=== PATIENT | female | born 1980 | race Two or more races ===

== ENCOUNTER 2020-11-11 17:56 | Emergency (ER) | payer MEDICAID ==
[~2020-11-11] VITALS: Ht 154.9 cm; Wt 81.6 kg
[2020-11-11] MEDS ORDERED: Morphine Sulfate 4mg/ml Inj (IV USE ONLY) IVP ONE (18:30)
--- NOTE | 2020-11-11 18:30 | NUR ---
ED Nurse Note:pt. came from home with c/o abdominal pain, blood and urine sent to labs
[2020-11-11 18:31] VITALS: BP 139/76
--- NOTE | 2020-11-11 18:35 | Emergency Room Report ---
History of Present Illness General Chief Complaint: Abdominal Pain Source: Patient (Ruby Randhawa) Present Illness HPI 40 YO female presents to the ED c/o 10 out of 10 in severity abdominal pain in the right upper quadrant and right lower quadrant progressive x4 days. Patient reports that pain is sharp in nature and it comes and goes. She denies radiation of her pain. She denies nausea, vomiting, fevers, chills, constipation or diarrhea. Patient does report some abdominal tenderness. She reports history of diabetes and reports that she takes Metformin daily. Patient reports that her blood glucose has been regularly under control. She denies any other significant past medical history. Patient does report that she is concerned she may have cancer. Patient denies familial history of cancers. Patient denies night sweats or significant changes in weight. She reports Gallbladder removal surgery. She denies ETOH, Tobacco or illicit drug use. She denies CP, Palpitations, Dizziness, rashes, bruising, syncope. Pt. reports some midline low back pain that began at the same time. She denies urinary incontinence or retention. Patient denies saddle anesthesia, paresthesias, muscle weakness or inability to ambulate. Patient denies urinary frequency, urgency, hematuria or dysuria. No other aggravating or relieving factors. 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 COVID-19 Screening: Negative COVID-19 COVID-19 Testing Source: clinic (Ruby Randhawa) Patient History Past Medical History: see triage record, DM Past Surgical History: jabier Pertinent Family History: none Social History: Denies: smoking, alcohol use, drug use Last Menstrual Period: last week Now: No Reviewed Nursing Documentation: PMH: Agreed; PSxH: Agreed (Ruby Randhawa) Nursing Documentation-PMH Hx Diabetes: Yes (Ruby Randhawa) Review of Systems All Other Systems: negative except mentioned in HPI (Ruby Randhawa) Physical Exam Vital Signs Date Time Temp Pulse Resp B/P (MAP) Pulse Ox O2 Delivery O2 Flow Rate FiO2 11/11/20 18:03 99.0 110 19 139/76 (97) 98 Room Air Sp02 EP Interpretation: reviewed, normal General Appearance: no apparent distress, alert, GCS 15, non-toxic Head: normocephalic, atraumatic Eyes: bilateral eye normal inspection, bilateral eye PERRL ENT: hearing grossly normal, normal voice Neck: full range of motion Respiratory: lungs clear, normal breath sounds, speaking full sentences Cardiovascular #1: regular rate, rhythm, tachycardia Gastrointestinal: normal bowel sounds, soft, no peritonitis, non-distended, no guarding, tenderness - RUQ, and RLQ. Pt. seems to have some diffuse tenderness but majority of pain is on the right side. Rectal: deferred Genitourinary: normal inspection, no CVA tenderness Musculoskeletal: back normal, normal range of motion, gait/station normal, tender - Right paraspinal ttp, no midline ttp. Neurologic: alert, motor strength/tone normal, oriented x3, sensory intact, responsive, speech normal Psychiatric: judgement/insight normal Skin: no rash, normal color (Ruby Randhawa) Medical Decision Making PA Attestation Dr. Brandon Is my supervising Physician whom patient management has been discussed with. (Ruby Randhawa) Diagnostic Impression: Primary Impression: Abdominal pain Qualified Codes: R10.11 - Right upper quadrant pain Additional Impressions: Fatty liver Pre-diabetes Constipation Qualified Codes: K59.00 - Constipation, unspecified ER Course 40 YO female presents to the ED c/o 10 out of 10 in severity abdominal pain in the right upper quadrant and right lower quadrant progressive x4 days. Patient reports that pain is sharp in nature and it comes and goes. She denies radiation of her pain. She denies nausea, vomiting, fevers, chills, constipation or diarrhea. Patient does report some abdominal tenderness. She reports history of diabetes and reports that she takes Metformin daily. Patient reports that her blood glucose has been regularly under control. She denies any other significant past medical history. Patient does report that she is concerned she may have cancer. Patient denies familial history of cancers. Patient denies night sweats or significant changes in weight. She reports Gallbladder removal surgery. She denies ETOH, Tobacco or illicit drug use. She denies CP, Palpitations, Dizziness, rashes, bruising, syncope. Pt. reports some midline low back pain that began at the same time. She denies urinary incontinence or retention. Patient denies saddle anesthesia, paresthesias, muscle weakness or inability to ambulate. Patient denies urinary frequency, urgency, hematuria or dysuria. No other aggravating or relieving factors. Ddx considered but are not limited to Diverticulitis, acute appy, diarrhea,UC, PUD, GE, pancreatitis, gallstone, ovarian torsion, ectopic , PID tubo-ovarian abscess. Vital signs: are WNL, pt. is afebrile H&PE are most consistent with [ ] ORDERS: -CBC, CMP, LIPASE: -UA -URINE HCG: -Abdominal US: ED INTERVENTIONS: -PO zofran 4mg. / Zantac, Fluids - Morphine 4mg IV DISCHARGE: At this time pt. is stable for d/c to home. Will provide printed patient care instructions, and any necessary prescriptions. Care plan and follow up instructions have been discussed with the patient prior to discharge. Labs Test 11/11/20 18:20 White Blood Count 8.3 K/UL (4.8-10.8) Red Blood Count 4.57 M/UL (4.20-5.40) Hemoglobin 12.6 G/DL (12.0-16.0) Hematocrit 39.4 % (37.0-47.0) Mean Corpuscular Volume 86 FL (80-99) Mean Corpuscular Hemoglobin 27.6 PG (27.0-31.0) Mean Corpuscular Hemoglobin Concent 32.1 G/DL (32.0-36.0) Red Cell Distribution Width 13.9 % (11.6-14.8) Platelet Count 234 K/UL (150-450) Mean Platelet Volume 8.6 FL (6.5-10.1) Neutrophils (%) (Auto) 60.8 % (45.0-75.0) Lymphocytes (%) (Auto) 24.1 % (20.0-45.0) Monocytes (%) (Auto) 9.4 % (1.0-10.0) Eosinophils (%) (Auto) 4.8 % (0.0-3.0) Basophils (%) (Auto) 0.9 % (0.0-2.0) Urine Color Pale yellow Urine Appearance Cloudy Urine pH 6 (4.5-8.0) Urine Specific [place] 1.015 (1.005-1.035) Urine Protein Negative (NEGATIVE) Urine Glucose (UA) Negative (NEGATIVE) Urine Ketones Negative (NEGATIVE) Urine Blood 1+ (NEGATIVE) Urine Nitrite Negative (NEGATIVE) Urine Bilirubin Negative (NEGATIVE) Urine Urobilinogen Normal MG/DL (0.0-1.0) Urine Leukocyte Esterase 3+ (NEGATIVE) Urine RBC 5-10 /HPF (0 - 2) Urine WBC 20-30 /HPF (0 - 2) Urine Squamous Epithelial Cells Many /LPF (NONE/OCC) Urine Bacteria Moderate /HPF (NONE) Urine Trichomonas Moderate /HPF (NONE) Urine HCG, Qualitative Negative (NEGATIVE) Sodium Level 135 MMOL/L (136-145) Potassium Level 3.8 MMOL/L (3.5-5.1) Chloride Level 101 MMOL/L (98-107) Carbon Dioxide Level 25 MMOL/L (21-32) Anion Gap 10 mmol/L (5-15) Blood Urea Nitrogen 20 mg/dL (7-18) Creatinine 0.6 MG/DL (0.55-1.30) Estimat Glomerular Filtration Rate > 60 mL/min (>60) Glucose Level 116 MG/DL (74-106) Calcium Level 8.8 MG/DL (8.5-10.1) Total Bilirubin 0.3 MG/DL (0.2-1.0) Aspartate Amino Transf (AST/SGOT) 163 U/L (15-37) Alanine Aminotransferase (ALT/SGPT) 221 U/L (12-78) Alkaline Phosphatase 117 U/L (46-116) Total Protein 8.3 G/DL (6.4-8.2) Albumin 3.2 G/DL (3.4-5.0) Globulin 5.1 g/dL Albumin/Globulin Ratio 0.6 (1.0-2.7) Lipase 229 U/L (73-393) (Ruby Randhawa) ER Course 40-year-old female presents with right upper quadrant pain, CT scan negative, except for large amount of stool burden patient with slight transaminitis most likely consistent with her having a potentially fatty liver patient counseled on weight loss, diet changes, patient may also be prediabetic Patient given magnesium citrate Disposition home with return precautions, abdominal return precautions discussed abdomen soft nontender no rebound no guarding Laboratory Tests Test 11/11/20 18:20 White Blood Count 8.3 K/UL (4.8-10.8) Red Blood Count 4.57 M/UL (4.20-5.40) Hemoglobin 12.6 G/DL (12.0-16.0) Hematocrit 39.4 % (37.0-47.0) Mean Corpuscular Volume 86 FL (80-99) Mean Corpuscular Hemoglobin 27.6 PG (27.0-31.0) Mean Corpuscular Hemoglobin Concent 32.1 G/DL (32.0-36.0) Red Cell Distribution Width 13.9 % (11.6-14.8) Platelet Count 234 K/UL (150-450) Mean Platelet Volume 8.6 FL (6.5-10.1) Neutrophils (%) (Auto) 60.8 % (45.0-75.0) Lymphocytes (%) (Auto) 24.1 % (20.0-45.0) Monocytes (%) (Auto) 9.4 % (1.0-10.0) Eosinophils (%) (Auto) 4.8 % (0.0-3.0) H Basophils (%) (Auto) 0.9 % (0.0-2.0) Urine Color Pale yellow Urine Appearance Cloudy Urine pH 6 (4.5-8.0) Urine Specific [place] 1.015 (1.005-1.035) Urine Protein Negative (NEGATIVE) Urine Glucose (UA) Negative (NEGATIVE) Urine Ketones Negative (NEGATIVE) Urine Blood 1+ (NEGATIVE) H Urine Nitrite Negative (NEGATIVE) Urine Bilirubin Negative (NEGATIVE) Urine Urobilinogen Normal MG/DL (0.0-1.0) Urine Leukocyte Esterase 3+ (NEGATIVE) H Urine RBC 5-10 /HPF (0 - 2) H Urine WBC 20-30 /HPF (0 - 2) H Urine Squamous Epithelial Cells Many /LPF (NONE/OCC) H Urine Bacteria Moderate /HPF (NONE) H Urine Trichomonas Moderate /HPF (NONE) H Urine HCG, Qualitative Negative (NEGATIVE) Sodium Level 135 MMOL/L (136-145) L Potassium Level 3.8 MMOL/L (3.5-5.1) Chloride Level 101 MMOL/L (98-107) Carbon Dioxide Level 25 MMOL/L (21-32) Anion Gap 10 mmol/L (5-15) Blood Urea Nitrogen 20 mg/dL (7-18) H Creatinine 0.6 MG/DL (0.55-1.30) Estimated Glomerular Filtration Rate > 60 mL/min (>60) Glucose Level 116 MG/DL (74-106) H Calcium Level 8.8 MG/DL (8.5-10.1) Total Bilirubin 0.3 MG/DL (0.2-1.0) Aspartate Amino Transferase (AST) 163 U/L (15-37) H Alanine Aminotransferase (ALT) 221 U/L (12-78) H Alkaline Phosphatase 117 U/L (46-116) H Total Protein 8.3 G/DL (6.4-8.2) H Albumin 3.2 G/DL (3.4-5.0) L Globulin 5.1 g/dL Albumin/Globulin Ratio 0.6 (1.0-2.7) L Lipase 229 U/L (73-393) Human Chorionic Gonadotropin, Quant < 1 mIU/mL (1-6) L (Jayesh Brandon MD) CT/MRI/US Diagnostic Results CT/MRI/US Diagnostic Results #1: Imaging Test Ordered: Abdominal ultrasound Impression " IMPRESSION: No acute findings in the abdomen. ." --Per official radiology report- Please see report for specific details. CT/MRI/US Diagnostic Results #2: Imaging Test Ordered: CT Abdomen and Pelvis WO Contrast Impression Pending at time of sign out (Ruby Randhawa) CT/MRI/US Diagnostic Results : Impression Procedure: CT Abdomen Pelvis WO Contrast EXAM: CT Abdomen and Pelvis Without Intravenous Contrast CLINICAL HISTORY: PAIN TECHNIQUE: Axial computed tomography images of the abdomen and pelvis without intravenous contrast. CTDI is 10.0 mGy and DLP is 515.1 mGy-cm. One or more of the following dose reduction techniques were used: automated exposure control, adjustment of the mA and/or kV according to patient size, use of iterative reconstruction technique. COMPARISON: 11/11/2020. FINDINGS: Lung bases: Minimal subsegmental atelectasis posteriorly at the lung bases in the lingular region. Heart: Heart is normal in size. ABDOMEN: Liver: The liver and the spleen are normal in contour. Gallbladder and bile ducts: Status post cholecystectomy. No ductal dilation. Pancreas: See below. Spleen: See above. Adrenals: The adrenal glands, the head, body, tail of the pancreas are within normal limits. Kidneys and ureters: No renal calculus or hydronephrosis. Stomach and bowel: Moderate ingested material in the stomach. Moderate quantity of stool throughout the colon. No obstruction. No mucosal thickening. PELVIS: Appendix: The appendix is seen on axial image 94 and is unremarkable. Bladder: The bladder is underdistended. No stones. Reproductive: The uterus is unremarkable. ABDOMEN and PELVIS: Intraperitoneal space: Unremarkable. No free air. No significant fluid collection. Bones/joints: Mild to moderate degenerative disc disease of the visualized spine. Moderate to severe osteoarthritic changes about the sacroiliac joints. No spondylolysis. No acute fracture. No dislocation. Soft tissues: Ischiorectal fat is clean. Vasculature: Pelvic phleboliths. No abdominal aortic aneurysm. Lymph nodes: No pelvic or inguinal lymphadenopathy. IMPRESSION: 1. Status post cholecystectomy. 2. No hydronephrosis. 3. The appendix is unremarkable. 4. Moderate quantity of stool throughout the colon without bowel obstruction. Dictated By: Blanco Duarte M.D. Electronically Signed By:Blanco Duarte M.D. Signed Date/Time11/11/201948 CC: Ruby Randhawa (Jayesh Brandon MD) Last Vital Signs Date Time Temp Pulse Resp B/P (MAP) Pulse Ox O2 Delivery O2 Flow Rate FiO2 11/11/20 18:03 99.0 110 19 139/76 (97) 98 Room Air (Ruby Randhawa) Disposition: HOME, SELF-CARE Condition: Stable Signed Out To: Dr. Brandon (Ruby Randhawa) [facility] Patient Instructions: Constipation, Adult, [id number], Fatty Liver, Nonalcoholic Fatty Liver Disease Diet, Prediabetes Eating Plan Additional Instructions: The patient was provided with discharge instructions, notified to follow-up with a primary care doctor and or specialist in the next 24-48 hours, and to return to the ED if they have worsening of their symptoms. Please note that this report is being documented using [employer] technology. This can lead to erroneous entry secondary to incorrect interpretation by the dictating instrument. Ruby Randhawa Nov 11, 2020 18:35 Jayesh Brandon MD Nov 11, 2020 20:29
[2020-11-11 18:47] LABS: BASOPHILS % (AUTO) 0.9 % (0.0-2.0); EOSINOPHILS % (AUTO) 4.8 % (0.0-3.0); HEMATOCRIT 39.4 % (37.0-47.0); HEMOGLOBIN 12.6 G/DL (12.0-16.0); LYMPHOCYTES % (AUTO) 24.1 % (20.0-45.0); MEAN CORPUSCULAR VOLUME 86 FL (80-99); MONOCYTES % (AUTO) 9.4 % (1.0-10.0); NEUTROPHILS % (AUTO) 60.8 % (45.0-75.0); PLATELET COUNT 234 K/UL (150-450); RED BLOOD COUNT 4.57 M/UL (4.20-5.40); RED CELL DISTRIBUTION WIDTH 13.9 % (11.6-14.8); WHITE BLOOD COUNT 8.3 K/UL (4.8-10.8)
[2020-11-11 18:52] LABS: APPEARANCE,URINE CLOUDY; BILIRUBIN, URINE NEGATIVE (NEGATIVE); COLOR,URINE PALE YELLOW; GLUCOSE, URINE (UA) NEGATIVE (NEGATIVE); KETONES,URINE NEGATIVE (NEGATIVE); LEUKOCYTE ESTERASE ,URINE 3+ (NEGATIVE); NITRITE,URINE NEGATIVE (NEGATIVE); PH,URINE 6 (4.5-8.0); PROTEIN,URINE NEGATIVE (NEGATIVE); UROBILINOGEN,URINE NORMAL MG/DL (0.0-1.0)
--- NOTE | 2020-11-11 18:55 | Diagnostic Imaging Report ---
EXAM: US Abdomen Complete CLINICAL HISTORY: ABD PAIN TECHNIQUE: Real-time ultrasound of the abdomen with image documentation. COMPARISON: None FINDINGS: Liver: Liver measures 16.3 cm. No focal lesion. No intrahepatic bile duct dilation. Gallbladder: Prior cholecystectomy. Common bile duct: Normal common bile duct measuring 4.2 mm. No stones. No dilation. Pancreas: Pancreas is not visualized due to overlying bowel gas. Kidneys: Right kidney measures 10.6 cm in length. No hydronephrosis or stone. Left kidney measures 11.1 cm in length. No hydronephrosis or stone. Spleen: Spleen measures 11.9 cm. No focal lesion. Aorta: Unremarkable. No aneurysm. Inferior vena cava: Visualized portions of the IVC are grossly unremarkable. Free fluid: No ascites. IMPRESSION: No acute findings in the abdomen.
[2020-11-11 19:03] LABS: ANION GAP 10 mmol/L (5-15); BLOOD UREA NITROGEN 20 mg/dL (7-18); CALCIUM 8.8 MG/DL (8.5-10.1); CARBON DIOXIDE 25 MMOL/L (21-32); CHLORIDE 101 MMOL/L (98-107); CREATININE 0.6 MG/DL (0.55-1.30); POTASSIUM 3.8 MMOL/L (3.5-5.1); SODIUM 135 MMOL/L (136-145)
[2020-11-11 19:07] LABS: ALANINE AMINOTRANSFERASE 221 U/L (12-78); ALBUMIN 3.2 G/DL (3.4-5.0); ALBUMIN/GLOBULIN RATIO 0.6 (1.0-2.7); ALKALINE PHOSPHATASE 117 U/L (46-116); ASPARTATE AMINO TRANSFERASE 163 U/L (15-37); BILIRUBIN,TOTAL 0.3 MG/DL (0.2-1.0)
--- NOTE | 2020-11-11 19:13 | NUR ---
EDMD at bedside
--- NOTE | 2020-11-11 19:27 | NUR ---
ED Nurse Note: pt taken to CT via wheelchair, in stable condition
--- NOTE | 2020-11-11 19:39 | NUR ---
ED Nurse Note: pt back from CT in stable condition.
[2020-11-11] MEDS ORDERED: Ketorolac 30mg Inj IV ONE (19:45)
--- NOTE | 2020-11-11 19:49 | Diagnostic Imaging Report ---
EXAM: CT Abdomen and Pelvis Without Intravenous Contrast CLINICAL HISTORY: PAIN TECHNIQUE: Axial computed tomography images of the abdomen and pelvis without intravenous contrast. CTDI is 10.0 mGy and DLP is 515.1 mGy-cm. One or more of the following dose reduction techniques were used: automated exposure control, adjustment of the mA and/or kV according to patient size, use of iterative reconstruction technique. COMPARISON: 11/11/2020. FINDINGS: Lung bases: Minimal subsegmental atelectasis posteriorly at the lung bases in the lingular region. Heart: Heart is normal in size. ABDOMEN: Liver: The liver and the spleen are normal in contour. Gallbladder and bile ducts: Status post cholecystectomy. No ductal dilation. Pancreas: See below. Spleen: See above. Adrenals: The adrenal glands, the head, body, tail of the pancreas are within normal limits. Kidneys and ureters: No renal calculus or hydronephrosis. Stomach and bowel: Moderate ingested material in the stomach. Moderate quantity of stool throughout the colon. No obstruction. No mucosal thickening. PELVIS: Appendix: The appendix is seen on axial image 94 and is unremarkable. Bladder: The bladder is underdistended. No stones. Reproductive: The uterus is unremarkable. ABDOMEN and PELVIS: Intraperitoneal space: Unremarkable. No free air. No significant fluid collection. Bones/joints: Mild to moderate degenerative disc disease of the visualized spine. Moderate to severe osteoarthritic changes about the sacroiliac joints. No spondylolysis. No acute fracture. No dislocation. Soft tissues: Ischiorectal fat is clean. Vasculature: Pelvic phleboliths. No abdominal aortic aneurysm. Lymph nodes: No pelvic or inguinal lymphadenopathy. IMPRESSION: 1. Status post cholecystectomy. 2. No hydronephrosis. 3. The appendix is unremarkable. 4. Moderate quantity of stool throughout the colon without bowel obstruction.
[2020-11-11 20:30] VITALS: BP 118/76
[2020-11-11] MEDS ORDERED: Magnesium Citrate Liq Btl ORAL ONE (20:30)
--- NOTE | 2020-11-11 20:30 | NUR ---
ER DISCHARGE NOTE: Patient is cleared to be discharged per ERMD, pt is aox4, on room air, with stable vital signs. pt was given dc and prescription instructions, pt was able to verbalize understanding, pt id band and iv site removed without complications. pt is able to ambulate with steady gait. pt took all belongings.
== END 2020-11-11 20:30 | disposition home or self-care (01) ==
LOC: EMR 18:36
DX: R10.11 Right upper quadrant pain (principal); K76.0 Fatty (change of) liver, not elsewhere classified; K59.00 Constipation, unspecified; E11.9 Type 2 diabetes mellitus without complications; Z79.84 Long term (current) use of oral hypoglycemic drugs
CPT/HCPCS: 36415; 74176; 76700; 80053; 81003; 81025; 83690; 84702; 85025; 87086; 96361; 96374; 96375; J1885; J2270; J7030; Z7502; 99284

== ENCOUNTER 2020-12-02 22:15 | Emergency (ER) | payer MEDICAID ==
[~2020-12-02] VITALS: Ht 154.9 cm; Wt 81.6 kg
--- NOTE | 2020-12-02 22:45 | NUR ---
Patient came in the ED complaining of left sided headache for the past 2weeks The pain is 10/10 throbbing, radiates to biateral shoulders and back of neck. Patient also reports same type of pain in left leg. Denies any N/V no trauma. Reports medical hx of prediabetes, on metformin, not taking at this time.
--- NOTE | 2020-12-02 22:49 | Emergency Room Report ---
History of Present Illness General Chief Complaint: Headache Source: Patient Present Illness HPI This is a 40-year-old female with a history of prediabetes, but she taking Metformin. She presents with complaint of headache. Initially started with bilateral eye pain and throbbing in nature. Started 2 weeks ago. Also with left-sided headache and numbness. She said it felt somebody hit her in the head and is still hurting in that area constantly. Now she has bilateral shoulder pain and achiness. Also with burning sensation to her feet and legs. No relief with ibuprofen. She was here on November 11 for abdominal pain. Labs were unremarkable. CT scan of the abdomen pelvis also unremarkable. she described her pain as an achy throbbing pain. 8 out of 10. No focal deficit. 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 COVID-19 Screening: Negative COVID-19 Patient History Past Medical History: see triage record, old chart reviewed, DM Past Surgical History: none Pertinent Family History: none Social History: Denies: smoking Last Menstrual Period: 11/12/2020 Now: No Immunizations: other Reviewed Nursing Documentation: PMH: Agreed; PSxH: Agreed Nursing Documentation-PMH Hx Hypertension: Yes Hx Diabetes: Yes Review of Systems Eye: Denies: eye pain, blurred vision ENT: Denies: ear pain, nose congestion, throat swelling Respiratory: Denies: cough, shortness of breath Cardiovascular: Denies: chest pain, palpitations Gastrointestinal: Denies: abdominal pain, diarrhea, nausea, vomiting Musculoskeletal: Denies: back pain, joint pain Skin: Denies: rash Neurological: Reports: headache; Denies: numbness Endocrine: Denies: increased thirst, increased urine Hematologic/Lymphatic: Denies: easy bruising All Other Systems: negative except mentioned in HPI Physical Exam Vital Signs Date Time Temp Pulse Resp B/P (MAP) Pulse Ox O2 Delivery O2 Flow Rate FiO2 12/02/20 22:29 97.0 90 15 161/95 (117) 97 Room Air Vitals with high blood pressure Sp02 EP Interpretation: reviewed, normal General Appearance: well appearing, no apparent distress, alert Head: normocephalic, atraumatic Eyes: bilateral eye PERRL, bilateral eye EOMI ENT: hearing grossly normal, normal pharynx Neck: full range of motion, supple, no meningismus Respiratory: chest non-tender, lungs clear, normal breath sounds Cardiovascular #1: regular rate, rhythm, no murmur Gastrointestinal: normal bowel sounds, non tender, no mass, no organomegaly, no bruit, non-distended Musculoskeletal: back normal, normal range of motion, gait/station normal Psychiatric: anxious Medical Decision Making Diagnostic Impression: Primary Impression: Headache Qualified Codes: R51.9 - Headache, unspecified Additional Impression: Hypertension Qualified Codes: I10 - Essential (primary) hypertension ER Course This patient presents with headache. She had recent labs done last month and was normal. Her blood pressure elevated here. This may be secondary to her high blood pressure. No evidence of TIA, CVA, bleed, meningitis or neoplastic process. This may be migrainous in nature. She seems to be very anxious also. CT/MRI/US Diagnostic Results CT/MRI/US Diagnostic Results : Imaging Test Ordered: CT head Impression Negative per radiologist Last Vital Signs Date Time Temp Pulse Resp B/P (MAP) Pulse Ox O2 Delivery O2 Flow Rate FiO2 12/02/20 22:29 97.0 90 15 161/95 (117) 97 Room Air Status: improved Disposition: HOME, SELF-CARE Condition: Stable Scripts Tramadol Hcl* (ULTRAM*) 50 Mg Tablet 50 MG ORAL Q6H PRN for For Pain, #20 TAB 0 Refills Prov: Cole Yeager MD 12/02/20 Amlodipine Besylate (Norvasc) 5 Mg Tablet 5 MG ORAL DAILY, #30 TAB Prov: Cole Yeager MD 12/02/20 Patient Instructions: General Headache Without Cause Additional Instructions: Follow-up with your doctor in 7 days. Return if symptoms worsen. Cole Yeager MD Dec 02, 2020 22:49
[2020-12-02] MEDS ORDERED: Metoclopramide 10mg/2ml Inj IVP ONE (23:00)
[2020-12-02] MEDS ORDERED: Ketorolac 30mg Inj IV ONE (23:00)
[2020-12-02] MEDS ORDERED: DiphenhydrAMINE 50mg/ml Inj IVP ONE (23:00)
--- NOTE | 2020-12-02 23:03 | Diagnostic Imaging Report ---
EXAM: CT Head Without Intravenous Contrast CLINICAL HISTORY: PAIN TECHNIQUE: Axial computed tomography images of the head/brain without intravenous contrast. CTDI is 53.4 mGy and DLP is 928.9 mGy-cm. One or more of the following dose reduction techniques were used: automated exposure control, adjustment of the mA and/or kV according to patient size, use of iterative reconstruction technique. COMPARISON: No relevant prior studies available. FINDINGS: Brain: Unremarkable. No hemorrhage. No significant white matter disease. No edema. Ventricles: Unremarkable. No ventriculomegaly. Bones/joints: Unremarkable. No acute fracture. Soft tissues: Unremarkable. Sinuses: Unremarkable as visualized. No acute sinusitis. Mastoid air cells: Unremarkable as visualized. No mastoid effusion. IMPRESSION: No acute intracranial pathology.
[2020-12-02 23:17] VITALS: BP 161/95
[2020-12-02] MEDS ORDERED: NORVASC5 MG ORAL (23:18)
[2020-12-02] MEDS ORDERED: TRAMADOL HCL50 MG ORAL (23:18)
== END 2020-12-02 23:30 | disposition home or self-care (01) ==
LOC: EMR 22:25
DX: R51.9 Headache, unspecified (principal); I10 Essential (primary) hypertension; E11.9 Type 2 diabetes mellitus without complications
CPT/HCPCS: 70450; 96374; 96375; J1200; J1885; J2765; Z7502; 99284

== ENCOUNTER 2020-12-19 22:25 | Emergency (ER) | payer MEDICAID ==
[~2020-12-19] VITALS: Ht 154.9 cm; Wt 79.4 kg
[~2020-12-19 22:25] MED LIST: NORVASC5 MG ORAL; TRAMADOL HCL50 MG ORAL
[2020-12-19] MEDS ORDERED: DOXYCYCLINE MO100 MG ORAL (23:09)
--- NOTE | 2020-12-19 23:12 | NUR ---
ED Nurse Note: urine sent to lab
[2020-12-19 23:15] VITALS: BP 155/98
[2020-12-19] MEDS ORDERED: Lidocaine 1% MPF 10mg/ml 5ml INJ ONE (23:15)
[2020-12-19] MEDS ORDERED: cefTRIAXone 500mg Inj IM ONE (23:15)
--- NOTE | 2020-12-19 23:15 | Emergency Room Report ---
History of Present Illness General Chief Complaint: Female Urogenital Problems Source: Patient Present Illness HPI 40-year-old female here with several days of vaginal irritation. Patient says that she had unprotected sexual intercourse with a man and is concerned that she was exposed to an STD. Said that the next day she began to have vaginal irritation. Has not had any vaginal discharge or dysuria. Requesting treatment for STD exposure. Denies headache, vision change, fevers, chills, chest pain, palpitation, shortness of breath, back pain, abdominal pain, nausea, vomiting, diarrhea, hematuria. Allergies: Coded Allergies: No Known Allergies (Unverified , 11/11/20) COVID-19 Screening Contact w/high risk pt: No Experienced COVID-19 symptoms?: No COVID-19 Testing performed PATIENT SERVICES SPECIALIST: No Patient History Now: No Nursing Documentation-[facility] Past Medical History: No History, Except For Hx Hypertension: Yes Hx Diabetes: Yes Review of Systems All Other Systems: negative except mentioned in HPI Physical Exam Vital Signs Date Time Temp Pulse Resp B/P (MAP) Pulse Ox O2 Delivery O2 Flow Rate FiO2 12/19/20 23:00 98.6 106 18 162/102 (122) 97 Room Air Sp02 EP Interpretation: reviewed, normal General Appearance: no apparent distress, alert, non-toxic Head: normocephalic, atraumatic Eyes: bilateral eye normal inspection, bilateral eye PERRL ENT: hearing grossly normal, normal pharynx, no angioedema, normal voice Neck: full range of motion, supple/symm/no masses Respiratory: chest non-tender, lungs clear, normal breath sounds, speaking full sentences Cardiovascular #1: regular rate, rhythm, no edema Cardiovascular #2: 2+ carotid (R), 2+ carotid (L), 2+ radial (R), 2+ radial (L), 2+ dorsalis pedis (R), 2+ dorsalis pedis (L) Gastrointestinal: normal bowel sounds, non tender, soft, non-distended, no guarding, no rebound Rectal: deferred Genitourinary: normal inspection, no CVA tenderness Musculoskeletal: back normal, normal range of motion, gait/station normal, non- tender Neurologic: alert, motor strength/tone normal, oriented x3, sensory intact, responsive, speech normal Psychiatric: judgement/insight normal, memory normal, mood/affect normal, no suicidal/homicidal ideation Lymphatic: no adenopathy Medical Decision Making Diagnostic Impression: Primary Impression: Vaginitis ER Course 40-year-old female here with vaginal irritation. Patient said that she had unprotected sexual intercourse prior to the vaginal irritation starting a few days ago. She was given ceftriaxone and a prescription for doxycycline for empiric treatment of STI. Urinalysis did show evidence of urinary tract infection. She was given prescription for Keflex. Urinalysis did also show evidence of urinary given information to follow-up with primary care. Told to return with any worsening symptoms. She expressed understanding and was discharged. Laboratory Tests Test 12/19/20 23:10 Urine Color Pale yellow Urine Appearance Cloudy Urine pH 8 (4.5-8.0) Urine Specific [place] 1.010 (1.005-1.035) Urine Protein 1+ (NEGATIVE) H Urine Glucose (UA) Negative (NEGATIVE) Urine Ketones Negative (NEGATIVE) Urine Blood 2+ (NEGATIVE) H Urine Nitrite Negative (NEGATIVE) Urine Bilirubin Negative (NEGATIVE) Urine Urobilinogen Normal MG/DL (0.0-1.0) Urine Leukocyte Esterase 3+ (NEGATIVE) H Urine RBC 5-10 /HPF (0 - 2) H Urine WBC Tntc /HPF (0 - 2) H Urine Squamous Epithelial Cells Moderate /LPF (NONE/OCC) H Urine Bacteria Many /HPF (NONE) H Urine HCG, Qualitative Negative (NEGATIVE) Last Vital Signs Date Time Temp Pulse Resp B/P (MAP) Pulse Ox O2 Delivery O2 Flow Rate FiO2 12/19/20 23:00 98.6 106 18 162/102 (122) 97 Room Air Scripts Cephalexin* (KEFLEX*) 500 Mg Capsule 500 MG ORAL EVERY 12 HOURS, #14 CAP 0 Refills Prov: Kaden Boykin M.D. 12/19/20 Doxycycline Monohydrate* (DOXYCYCLINE MONOHYDRATE*) 100 Mg Capsule 100 MG ORAL Q12H, #14 CAP 0 Refills Prov: Kaden Boykin M.D. 12/19/20 Referrals: [facility] Patient Instructions: Vaginitis Kaden Boykin M.D. Dec 19, 2020 23:14
[2020-12-19 23:22] LABS: APPEARANCE,URINE CLOUDY; BILIRUBIN, URINE NEGATIVE (NEGATIVE); COLOR,URINE PALE YELLOW; GLUCOSE, URINE (UA) NEGATIVE (NEGATIVE); KETONES,URINE NEGATIVE (NEGATIVE); LEUKOCYTE ESTERASE ,URINE 3+ (NEGATIVE); NITRITE,URINE NEGATIVE (NEGATIVE); PH,URINE 8 (4.5-8.0); PROTEIN,URINE 1+ (NEGATIVE); UROBILINOGEN,URINE NORMAL MG/DL (0.0-1.0)
[2020-12-19] MEDS ORDERED: CEPHALEXIN500 MG ORAL (23:39)
[2020-12-19 23:50] VITALS: BP 150/90
--- NOTE | 2020-12-19 23:50 | NUR ---
ER DISCHARGE NOTE: Patient is cleared to be discharged per ERMD, pt is aox4, on room air, with stable vital signs. pt was given antibiotic paper prescription, and clinic list to f/u for full panel STD testing. pt was able to verbalize understanding, pt id band removed. pt is able to ambulate with steady gait. pt took all belongings.
== END 2020-12-19 23:50 | disposition home or self-care (01) ==
LOC: EMR 23:05
DX: N76.0 Acute vaginitis (principal); E11.9 Type 2 diabetes mellitus without complications; I10 Essential (primary) hypertension
CPT/HCPCS: 81003; 81025; 87086; 96372; J0696; Z7502; 99283